=== PATIENT | male | born 2000 | race Caucasian/White ===

== ENCOUNTER 2021-01-13 15:18 | Emergency (ER) | payer BC, MEDICAID, SELFPAY ==
[2021-01-13 15:19] VITALS: BP 121/72; PULSE 130; RESP 18; TEMP 36.3; O2SAT 98; BMI 40.7
[2021-01-13 15:38] VITALS: BP 121/72; PULSE 113; RESP 18; TEMP 37.1; O2SAT 95
--- NOTE | 2021-01-13 15:40 | CT_ITS ---
INDICATION: Pain EXAMINATION: CT Abdomen And Pelvis W/O Contrast Injection TECHNIQUE: Helically acquired images were obtained of the abdomen and pelvis without the use of IV contrast. A radiation dose optimization technique was used for this scan. Oral contrast: None. COMPARISON: None FINDINGS: Evaluation of the solid organs and vascular structures is limited without intravenous contrast. Visualized lung bases: Unremarkable Liver: Unremarkable Gallbladder: Unremarkable Spleen: Unremarkable Pancreas: Unremarkable Adrenal Glands: Unremarkable Kidneys: Punctate 1 mm nonobstructing stone in the right midpole. GI Tract: Fatty infiltration of the submucosa of the ascending colon, transverse colon and rectum. Vasculature: Unremarkable Lymphadenopathy: None Peritoneum: No ascites. Bladder: Unremarkable Reproductive organs: Unremarkable Bones/Soft tissues: No suspicious osseous or soft tissue lesions CT/Abdomen/Pelvis without Cont IMPRESSION: No acute abnormalities in the abdomen or pelvis. 1 mm non-obstructing stone in the mid right kidney. Fatty infiltration of the submucosa of the ascending colon, transverse colon and rectum. This could be related to obesity versus chronic inflammatory bowel disease. Electronically Signed: Sebastian De Anda MD at 16:39 EDT Tel , Service support ,
--- NOTE | 2021-01-13 15:42 | ED.DCSUM_ITS ---
- ER Visit Summary Date of Service: 01/13/21 Chief Complaint: Abdominal pain and vomiting History of Present Illness: The patient is a 20 M [presents to the emergency department with sudden onset of vomiting around 10:30 AM. Patient states that he is vomited about 10 times. He describes diffuse abdominal pain. Last bowel movement was last night. Patient states that he went to urgent care where they checked his temperature and it was 102.7. Patient denies urinary symptoms. He denies cough. He denies Covid exposures. Patient states that he was exposed to his family members who had a stomach bug. Patient has not had any prior abdominal surgeries.] Physical Examination: [HEENT-PERRLA, EOMI. Cranial nerves II through XII grossly intact. TMs clear. Mucous membranes moist. No adenopathy. Cardiovascular-regular rate and rhythm without murmur or ectopy Lungs-clear to auscultation, chest wall stable without crepitus or subcu emphysema Abdomen-normoactive bowel sounds, soft. Patient has some mild tenderness over the right lower quadrant as well as the suprapubic region and left lower quadrant. There is no rebound, rigidity, or peritoneal signs. Extremities-intact ?4, normal range of motion, normal pulses, atraumatic] Test Results: [CBC with differential obtained showed a white count of 12.3, hemoglobin 16, hematocrit 47, placed 279. Chemistries normal. LFTs were normal lipase was normal. CT flank without contrast showed no acute disease process as read by radiology.] Emergency Department Course and Treatment: Line established on arrival. Patient was given a liter normal same fluid bolus. Patient was given Zofran 4 mg IV. Repeat examination at 1705 shows patient to be markedly improved. Patient's had no further vomiting. He denies any abdominal pain currently. On abdominal exam he has no pain on exam. [] Treatment Plan: [Patient advised to follow-up with primary care physician in 3 to 5 days. Patient given a prescription for Zofran. He is advised to push fluids. Patient advised to return if worsening pain, fever, persistent vomiting, dehydration, or condition should worsen anyway.] Disposition: [Discharged home in stable condition] Impression: [Abdominal pain-etiology uncertain Vomiting] This note was generated with [employer] dictation software. It may contain incorrect words, spelling, and punctuation that were not noted in review of the chart prior to signing ED Disposition - Plan for ED Patient: Referrals: NOT,DEFINED [NON-STAFF] -
[2021-01-13] MEDS: 0.9% Normal Saline 1,000 ML 1000 ML IV (16:05)
[2021-01-13] MEDS: Ondansetron 4 MG/2 ML Vial IV (16:05)
[2021-01-13 16:09] LABS: Absolute Lymphocyte Count 0.46 X10^3/uL (0.83-4.51); Basophil# 0.06 X10^3/uL; Basophil% 0.5 % (0-1); Eosinophil# 0.19 X10^3/uL; Eosinophils% 1.5 % (0-5); Hematocrit 46.7 % (40-54); Hemoglobin 16.3 g/dL (13.0-16.5); Lymphocyte # 0.46 X10^3/ul (4.0); Lymphocyte % 3.7 % (19-41); Mean Corp Hgb Conc 34.9 g/dL (32-36); Mean Corpuscular Hgb 30.2 pg (27.0-32.0); Mean Corpuscular Volume 86.6 fL (80-94); Mean Platelet Vol. 8.9 fl (6.2-12.0); Monocyte% 4.9 % (0-10); NRBC Flagged by Analyzer 0 % (0-5); Neutrophil # 10.96 X10^3/uL (2.7-7.7); POSITIVE DIFFERENTIAL YES; Platelet Count 279 K/mm3 (150-450); RBC Distribution Width CV 11.6 % (11.6-14.6); RBC Distribution Width SD 36.3 fl (35.1-43.9); Red Blood Count 5.39 M/mm3 (4.6-6.2); White Blood Count 12.3 K/mm3 (4.4-11.0)
[2021-01-13 16:10] LABS: Differential Indicated SCAN CRITERIA MET
[2021-01-13 16:51] LABS: AST(SGOT) 17 U/L (15-37); Alanine Aminotransfer ALT/SGPT 34 U/L (16-61); Albumin, Serum 4.2 g/dL (3.2-5.0); Alkaline Phosphatase 82 U/L (45-117); Anion Gap 5 (5-15); BUN 16 mg/dL (7-18); BUN/Creat Ratio 13.8 RATIO (10-20); Calcium,Total 9.4 mg/dL (8.5-10.1); Chloride 103 mmol/L (98-107); Creatinine, Serum 1.16 mg/dL (0.70-1.30); EST Glomerular Filtration Rate 83 mL/min (>60); Est Glom Filt Rate - Afr Amer 101 mL/min (>60); Estimated Creatinine Clearance 86.89 ml/min; Globulin 4.4 g/dL (2.2-4.2); Glucose 106 mg/dL (74-106); Lipase 77 U/L (73-393); Potassium 4.4 mmol/L (3.5-5.1); Protein, Total 8.6 g/dL (6.4-8.2); Sodium Level 136 mmol/L (136-145)
[2021-01-13 16:56] LABS: Differential Comment SCANNED
--- NOTE | 2021-01-13 17:06 | DCINST.ED_ITS ---
ED Disposition - Plan for ED Patient: Instructions: ED Vomiting (Adult), ED Unknown Causes of Abdominal ... Prescriptions: Ondansetron [Zofran Odt] 4 mg PO Q8H PRN PRN #10 tablet PRN Reason: Nausea Transmission Status: Pending to [facility] Referrals: NOT,DEFINED [NON-STAFF] - 3-5 Days
[2021-01-13 17:12] LABS: Bacteria 0 SEEN /hpf (None Seen); Color, Urine Yellow (Yellow); Glucose, Dipstick Normal (Normal); Ketone-Dipstick 5 mg/dl (Negative); Leukocyte Esterase-Dipstick Negative /ul (Negative); Nitrite-Dipstick Negative (Negative); Occult Blood-Urine Negative /ul (Negative); Protein-Dipstick Negative (Negative); Red Blood Cells-Urine 0 SEEN /hpf (0-5); Squamous Epithelial Cells - UA 0 SEEN /hpf (0-5); Urine Bilirubin Dipstick Negative (Negative); Urine Clarity Clear (Clear); Urine Urobilinogen Normal (Normal); White Blood Cells 0 SEEN /hpf (0-5)
[2021-01-13 17:16] VITALS: PULSE 100; RESP 17; O2SAT 95
[2021-01-13 17:19] LABS: Mucous, Urine 2+ /hpf (<or=2+)
== END 2021-01-13 17:17 | disposition home or self-care (01) ==
PROVIDERS: Emergency Provider Emergency Medicine; PCP Family Medicine
DX: R10.84 Generalized abdominal pain (principal); R11.2 Nausea with vomiting, unspecified; R51.9 Headache, unspecified
CPT/HCPCS: 74176; 80053; 81001; 83690; 85025; 96361; 96374; 99283; J7030; A4216; J2405